=== PATIENT | female | born 1990 | race Caucasian/White ===

== ENCOUNTER 2016-12-18 20:11 | Emergency (ER) | payer MEDICAID ==
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
== END 2016-12-18 21:35 | disposition home or self-care (01) ==
LOC: ER 20:11
DX: F41.9 Anxiety disorder, unspecified (principal); F22 Delusional disorders; R03.0 Elevated blood-pressure reading, without diagnosis of hypertension; Z88.8 Allergy status to other drugs, medicaments and biological substances
CPT/HCPCS: 99284; 96372; J2060; Z7502